=== PATIENT | female | born 1945 | race Caucasian/White ===

== ENCOUNTER 2018-09-27 08:35 | Emergency (ER) | payer OTHER ==
[~2018-09-27] VITALS: Ht 162.6 cm; Wt 65.8 kg
[2018-09-27 09:35] LABS: Basophils # (auto) 0.1 uL; Eosinophils # (auto) 0.4 uL; Hemoglobin 13.9 g/dL (12.2-16.2)
[2018-09-27 09:39] LABS: Basophils % (auto) 0.5 % (0.0-2.0); Eosinophils % (auto) 3.7 % (0.0-7.0); Hematocrit 41.4 % (36.0-46.0); Lymphocytes # (auto) 2.1 uL; Mean Corpuscular Hemoglobin 28.3 pg (28.0-32.0); Mean Corpuscular Hgb Conc. 33.6 g/dL (32.0-36.0); Mean Corpuscular Volume 84.2 fL (80.0-100.0); Monocytes # (auto) 1.1 uL; Monocytes % (auto) 9.8 % (0.0-12.0); Neutrophils # (auto) 7.3 uL; Platelet Count (auto) 596 10^3/uL (140-450); Red Blood Cells 4.92 10^6/uL (4.0-5.20); Red Cell Distribution Width 18.2 % (11.8-14.3); White Blood Cell 10.9 10^3/uL (4.4-10.8)
[2018-09-27 09:45] LABS: Alanine Aminotransferase 50 U/L (13-56); Albumin 3.7 g/dL (3.4-5.0); Anion Gap 6 (5-15); Aspartate Aminotransferase 25 U/L (15-37); BUN/Creatinine Ratio 17.3; Blood Urea Nitrogen 18 mg/dL (7-18); Calcium 8.8 mg/dL (8.5-10.1); Carbon Dioxide 28 mmol/L (21-32); Chloride 100 mmol/L (98-107); GFR African American 67 mL/min; GFR Non-African American 55 mL/min; Glucose 260 mg/dL (74-106); Magnesium 2.4 mg/dL (1.6-2.6); Potassium 4.9 mmol/L (3.5-5.1); Sodium 134 mmol/L (136-145)
[2018-09-27] MEDS: SODIUM CHLORIDE 0.9% 1,000 ML IV ONE (09:45)
[2018-09-27 09:50] LABS: Alkaline Phosphatase 81 U/L (45-117); Bilirubin, Total 0.7 mg/dL (0.2-1.0); Total Protein 6.8 g/dL (6.4-8.2)
[2018-09-27 09:51] LABS: INR 1.05 (0.9-1.15); Prothrombin Time 11.3 sec (9.06-12.60)
[2018-09-27 12:57] VITALS: BP 165/65
== END 2018-09-27 15:24 | disposition home or self-care (01) ==
LOC: ER 08:35 → EDBD 08:35 → ER 15:23
DX: I24.9 Acute ischemic heart disease, unspecified (principal); E11.9 Type 2 diabetes mellitus without complications; E78.5 Hyperlipidemia, unspecified; I10 Essential (primary) hypertension; I25.2 Old myocardial infarction; E07.9 Disorder of thyroid, unspecified
CPT/HCPCS: 36415; 71045; 80053; 83735; 84484; 85025; 85610; 85730; 93005; 94761; 99284; J7030